=== PATIENT | female | born 1930 | race Caucasian/White ===

== ENCOUNTER → 2017-08-11 | Outpatient (CLI) | payer MEDICARE ==
[~2017-08-11] MED LIST: ACET325; ACET325 PO; ACET500; ACET500 PO; ACIDOPHILUS PO; ALEN70; ALEN70 PO; ALPR.5; ALPR.5 PO; ALPR1 PO; AMLO10 PO; BECL25NI; BECLNI16.8; BECLOMETHASONE; BENAML10/2; BENAML10/2 PO; BENAML10/5 PO; CALCAVITD; CALCAVITD PO; CALCAVITDA PO; CEPH500 PO; CHOL10002 PO; CHON; CIPR750 PO; CLON1 PO; CONEST.625; CONEST.625 PO; CRANBERRY; CRANBERRY TAB; DIPH25 PO; DOC250 PO; DOCU100 PO; DOXY100 PO; ERGO400 PO; FIBER; FISH1000 PO; GLUCHON PO; GLUCOSAMIN; HYDACE7.5L PO; LACT PO; LISI20 PO; MECL25 PO; MEGARED PO; META800; METO10 PO; MSM; MULVITMINE; MULVITMINE PO; NITR100CA PO; NYST100SU MT; OMEP20ER; OMEP20ER PO; ONDA4 PO; ONDA4ODT MM; ONDA8 PO; OXYB5 PO; POLY500 PO; PRED1; PRED1 PO; PRED5 PO; PREN-16 PO; PROACE100 PO; PROM12.5S PR; PROM50S PR; PSYL5.85P PO; RANI150 PO; RIFA600I PO; RXMETA800; SENN187 PO; TRIHYD253A PO; VITAMIN D PO; VITAMIN D-32000 UNI1 PO; WARF5 PO; [UNRECOGNIZED DRUG - OTHER]; [UNRECOGNIZED DRUG - OTHER]; [UNRECOGNIZED DRUG - OTHER] PO; [UNRECOGNIZED DRUG - OTHER] PO
== END | disposition home or self-care (01) ==
LOC: LAB EV 10:00 → LAB SHORT 10:00
DX: N39.0 Urinary tract infection, site not specified (principal)
CPT/HCPCS: 87086

== ENCOUNTER 2018-02-22 14:14 | Day surgery (SDC) | payer MEDICARE ==
[~2018-02-22] VITALS: Ht 152.4 cm; Wt 58.3 kg
[~2018-02-22 14:14] MED LIST changes: +LEVFLO500 PO; +LIOT5 PO; +Metamucil Smooth1 EA PO; +PANT40 PO; -PSYL5.85P PO
[2018-02-22] MEDS ORDERED: HYDCHL25 PO (14:30)
[2018-02-22] MEDS ORDERED: ACET500 PO (14:31)
--- NOTE | 2018-02-22 14:48 | NUR ---
02/22/18 1448 Bijal Wayne V PT RESTING IN BED, SIDE RAILS IN PLACE, CALL LIGHT WITHIN REACH, VSS. PT TEACHING COMPLETED. PT STATES SHE IS COMFORTABLE AND DOES NOT NEED ANYTHING AT THIS TIME.
--- NOTE | 2018-02-22 17:48 | NUR ---
02/22/18 1748 Lucia Kearns LATE ENTRY UPON ARRIVAL TO SDU, PT BP ELEVATED 223/99, SEE VS STRIP FOR ALL VITALS, INTERVENTIONS AND MEDICATIONS. RN REPOSITIONED BP CUFF, CHANGED TO RADIAL CUFF. PT DENIED PAIN/NAUSEA AND TRANSFERED TO CHAIR SMOOTHLY. DR. ERVIN UPDATED ON PT BP. GAVE 1 500MG TAB TYLENOL AT 1608. PT TOLERATED PO NOURISHMENT AND DENIES NAUSEA/PAIN. CONTINUED TO MONITOR PT AND BP. GAVE 5MG OF IV LEBATOLOL AT [address] ERVIN ORDER. BP GAME DOWN QUICKLY TO PRE OP BASELINE. UPDATED DR ERVIN WHO STATED THAT PT WAS OK FOR DC HOME, AND GAVE VO FOR PT TO TAKE LISINIPRIL WHEN SHE GOT HOME, THEN TAKE HER BP 1 HR LATER AND IF SBP GREATER THAN 180 TO CALL HER ON-CALL PCP. RN REPEATED VO BACK. DR ERVIN ASKED RN TO FAX VITALS TO PCP FOR PATIENT. VITALS SIGN SHEET AND PRE OP VITALS SENT TO PCP. DISCUSSED DC INSTRUCTIONS WITH PT AND FRIEND WILLA, ANSWERED QUESTIONS, WROTE DR ERVIN INSTRUCTIONS ON BACK OF DC INSTRUCTIONS. WC PT TO CAR. POOR CONTROLLED IN AFTERNOON. FAX SENT TO PCP.
== END 2018-02-22 17:13 | disposition home or self-care (01) ==
LOC: ORSCSDS 14:14
PROVIDERS: Ophthalmology
PROC: 080NXZZ Alteration of Right Upper Eyelid, External Approach (ICD-10-PCS; principal; 2018-02-22 15:30)
PROC: 080PXZZ Alteration of Left Upper Eyelid, External Approach (ICD-10-PCS; principal; 2018-02-22 15:30)
PROC: 0W020ZZ Alteration of Face, Open Approach (ICD-10-PCS; principal; 2018-02-22 15:30)
DX: H02.831 Dermatochalasis of right upper eyelid (principal); H02.834 Dermatochalasis of left upper eyelid; H02.413 Mechanical ptosis of bilateral eyelids; I10 Essential (primary) hypertension; I25.2 Old myocardial infarction; Z79.899 Other long term (current) drug therapy
CPT/HCPCS: J7120

== ENCOUNTER → 2018-03-18 | Outpatient (CLI) | payer MEDICARE ==
[~2018-03-18] MED LIST changes: +HYDCHL25 PO
== END | disposition home or self-care (01) ==
LOC: LAB SHORT 11:39 → LAB EV 11:39
DX: N39.0 Urinary tract infection, site not specified (principal)
CPT/HCPCS: 87077; 87086; 87186

== ENCOUNTER → 2018-09-25 | Outpatient (CLI) | payer MEDICARE | END | disposition home or self-care (01) | LOC: PLD 11:45 → LAB SHORT 11:45 | DX: D04.62 Carcinoma in situ of skin of left upper limb, including shoulder (principal) | CPT/HCPCS: 88305 ==

== ENCOUNTER → 2019-01-28 | Outpatient (CLI) | payer MEDICARE ==
[~2019-01-28] MED LIST changes: +AZO CRANBERRY1 EAC1 PO; +METAMUCIL POWD575 GM PO; +TUMS500 MG PO; -VITAMIN D-32000 UNI1 PO; +VITAMIN D325 MCG PO; +Zantac150 MG PO
== END | disposition home or self-care (01) ==
LOC: LAB SHORT 10:09 → LAB EV 10:09
DX: N39.0 Urinary tract infection, site not specified (principal)
CPT/HCPCS: 87077; 87086; 87186

== ENCOUNTER 2019-02-08 22:34 | Observation (INO) | payer MEDICARE ==
[~2019-02-08] VITALS: Ht 152.4 cm; Wt 54.9 kg
[~2019-02-08 22:34] MED LIST changes: -AZO CRANBERRY1 EAC1 PO; -METAMUCIL POWD575 GM PO; -TUMS500 MG PO; -Zantac150 MG PO
[2019-02-08] MEDS ORDERED: METAMUCIL POWD575 GM PO (22:48)
[2019-02-08] MEDS ORDERED: Zantac150 MG PO (22:49)
[2019-02-08] MEDS ORDERED: AZO CRANBERRY1 EAC1 PO (22:49)
[2019-02-08] MEDS ORDERED: TUMS500 MG PO (22:50)
[2019-02-08 23:56] LABS: BASOPHILS ABSOLUTE AUTO 0.08 K/mm3 (0.00-0.23); BASOPHILS PERCENT AUTO 0 % (0-2); EOSINOPHILS ABSOLUTE AUTO 0.12 K/mm3 (0.00-0.68); EOSINOPHILS PERCENT AUTO 0 % (0-6); Hematocrit 38.3 % (33.0-51.0); Hemoglobin 12.7 g/dL (11.5-16.0); IMMATURE GRAN ABSOLUTE AUTO 0.22 K/mm3 (0.00-0.10); IMMATURE GRAN PERCENT AUTO 1 % (0-1); LYMPHOCYTES ABSOLUTE AUTO 3.38 K/mm3 (0.84-5.20); LYMPHOCYTES PERCENT AUTO 10 % (21-46); MONOCYTES ABSOLUTE AUTO 2.67 K/mm3 (0.16-1.47); MONOCYTES PERCENT AUTO 8 % (4-13); Mean Corpuscular HGB Conc 33.2 g/dL (31.5-36.5); Mean Corpuscular Volume 90 fL (80-100); Mean Platelet Volume 10.5 fL (9.1-12.4); NEUTROPHILS ABSOLUTE AUTO 27.88 K/mm3 (1.96-9.15); NEUTROPHILS PERCENT AUTO 81 % (41-73); Platelet Count 558 K/mm3 (150-400); RDW Coefficient Variation 13.6 % (11.7-14.2); RDW Standard Deviation 44.6 fL (35.1-46.3); Red Blood Cell Count 4.24 M/mm3 (3.80-5.20); White Blood Cell Count 34.35 K/mm3 (4.00-11.30)
[2019-02-09 00:17] LABS: Alanine Aminotransfer (ALT/SGP 25 U/L (12-78); Albumin, Blood 3.5 g/dL (3.4-5.0); Albumin/Globulin Ratio 0.8 (0.8-1.8); Alk Phos 76 U/L (50-136); Anion Gap 8 mmol/L (6-16); Aspartate Aminotrans (AST/SGOT 16 U/L (12-37); Bilirubin, Total 0.3 mg/dL (0.1-1.0); Blood Urea Nitrogen 18 mg/dL (8-24); Bun/Creatinine Ratio 26.5 (12.0-20.0); CO2, Blood 25 mmol/L (21-32); Calcium, Blood 9.6 mg/dL (8.5-10.1); Chloride, Blood 100 mmol/L (98-108); Creatinine, Blood 0.68 mg/dL (0.40-1.00); Globulin, Blood 4.2 g/dL (2.2-4.0); Glomerular Filtration Rate >60 (60-); Glucose, Blood 103 mg/dL (70-99); Potassium, Blood 4.4 mmol/L (3.5-5.5); Sodium, Blood 133 mmol/L (136-145); Total Protein, Blood 7.7 g/dL (6.4-8.2); Troponin I <0.015 ng/mL (0.000-0.040)
[2019-02-09 00:28] LABS: Source, Urine Catheter
[2019-02-09 00:31] LABS: Bilirubin, Urine Neg (Neg); Blood, Urine Neg (Neg); Glucose Qualitative, Urine Neg (Neg); Ketones, Urine Neg (Neg); Leukocyte Esterase, Urine Neg (Neg); Nitrite, Urine Neg (Neg); Protein, Urine Neg (Neg); Urobilinogen, Urine NORM (Normal)
[2019-02-09 00:37] LABS: Appearance, Urine Clear (Clear); Color, Urine Yellow (P-Yellow)
[2019-02-09 01:45] LABS: Adenovirus F 40/41 Not Detected (NOT DETECT); Astrovirus Not Detected (NOT DETECT); Campylobacter Sp Not Detected (NOT DETECT); Cryptosporidium Not Detected (NOT DETECT); Cyclospora Cayetanensis Not Detected (NOT DETECT); E. Coli O157 Not Detected (NOT DETECT); Entamoeba Histolytica Not Detected (NOT DETECT); Enteroaggregative E. coli-EAEC Not Detected (NOT DETECT); Enteropathogenic E. coli-EPEC Not Detected (NOT DETECT); Enterotoxigenic E. coli-ETEC Not Detected (NOT DETECT); Giardia Lamblia Not Detected (NOT DETECT); Norovirus GI/GII Not Detected (NOT DETECT); Plesiomonas Shigelloides Not Detected (NOT DETECT); Rotavirus A Not Detected (NOT DETECT); Salmonella Sp Not Detected (NOT DETECT); Sapovirus Not Detected (NOT DETECT); Shiga Toxin-prod E. coli-STEC Not Detected (NOT DETECT); Shigella/Enteroin E. coli-EIEC Not Detected (NOT DETECT); Vibrio Cholerae Not Detected (NOT DETECT); Vibrio Sp Not Detected (NOT DETECT); Yersinia Enterocolitica Not Detected (NOT DETECT)
--- NOTE | 2019-02-09 05:44 | NUR ---
END SHIFT SUMMARY ASSUMED CARE OF PT AT 0420. PT IS ALERT AND ORIENTED X4. PT IS A GOOD HISTORIAN. PT STATES THAT SHE GETS LOW BP AND THATS WHY SHE GETS DIZZY AND FAINTS, PT STATED THAT SHE FELT LIKE SHE HAD TO GO TO THE BATHROOM WHEN SHE WAS ABOUT TO TAKE HER MEDS LAST NIGHT, AFTER SHE WENT, WHEN SHE STOOD UP SHE GOT DIZZY AND WHEN SHE TRIED TO THROW UP SHE ACCIDENTLY HAD DIARRHEA, THEN SHE FELT FAINT AND COLLAPSED, PT STATED SHE HIT HER HEAD ON THE TUB BUT IT DIDNT MAKE HER BLACK OUT AND THE PT HAS A SKIN TEAR ON HER R FOREARM, PICTURES TAKEN. MURMUR HEARD ON AUSCALTATION, PT ON TELE, SINUS @ 81. LUNG SOUNDS CLEAR, PT ON RA. PT IS CURRENTLY SLEEPING, CALL LIGHT IN REACH, BED IN LOWEST POSTION, WILL CONTINUE TO MONITOR UNTIL DAYSHIFT NURSE ARRIVES.
[2019-02-09 08:34] LABS: Hematocrit 32.6 % (33.0-51.0); Hemoglobin 10.7 g/dL (11.5-16.0); Mean Corpuscular HGB 29.6 pg (26.0-34.0); Mean Corpuscular HGB Conc 32.8 g/dL (31.5-36.5); Mean Corpuscular Volume 90 fL (80-100); Mean Platelet Volume 10.9 fL (9.1-12.4); Platelet Count 507 K/mm3 (150-400); RDW Coefficient Variation 13.6 % (11.7-14.2); Red Blood Cell Count 3.61 M/mm3 (3.80-5.20); White Blood Cell Count 22.02 K/mm3 (4.00-11.30)
[2019-02-09 09:27] LABS: Anion Gap 6 mmol/L (6-16); Blood Urea Nitrogen 18 mg/dL (8-24); Bun/Creatinine Ratio 27.2 (12.0-20.0); CO2, Blood 24 mmol/L (21-32); Calcium, Blood 8.4 mg/dL (8.5-10.1); Chloride, Blood 102 mmol/L (98-108); Creatinine, Blood 0.66 mg/dL (0.40-1.00); Glomerular Filtration Rate >60 (60-); Glucose, Blood 100 mg/dL (70-99); Phosphorus, Blood 2.7 mg/dL (2.5-4.9); Sodium, Blood 132 mmol/L (136-145)
[2019-02-09 12:01] LABS: Adenovirus Not Detected (NOT DETECT); Coronavirus 229E Not Detected (NOT DETECT); Coronavirus HKU1 Not Detected (NOT DETECT); Coronavirus NL63 Not Detected (NOT DETECT); Coronavirus OC43 Not Detected (NOT DETECT); Human Metapneumovirus Not Detected (NOT DETECT); Human Rhinovirus/Enterovirus Not Detected (NOT DETECT); Influenza A Not Detected (NOT DETECT); Influenza A/2009-H1 Not Detected (NOT DETECT); Influenza A/H1 Not Detected (NOT DETECT); Influenza A/H3 Not Detected (NOT DETECT)
[2019-02-09 12:02] LABS: Bordetella pertussis Not Detected (NOT DETECT); Chlamydophila pneumoniae Not Detected (NOT DETECT); Influenza B Not Detected (NOT DETECT); Mycoplasma pneumoniae Not Detected (NOT DETECT); Parainfluenza Virus 1 Not Detected (NOT DETECT); Parainfluenza Virus 2 Not Detected (NOT DETECT); Parainfluenza Virus 3 Not Detected (NOT DETECT); Parainfluenza Virus 4 Not Detected (NOT DETECT); Respiratory Syncytial Virus Not Detected (NOT DETECT)
--- NOTE | 2019-02-09 18:14 | NUR ---
SHIFT SUMMARY PATIENT A/O. FAMILY/FRIENDS AT BEDSIDE FOR PORTION OF SHIFT. ABLE TO MAKE NEEDS KNOWN. CALL LIGHT IN REACH. PATIENT CALLS FOR ASSISTANCE TO TRANSFER TO RESTROOM. PATIENT RIGHT ARM HAS DRESSING APPLIED AND IS CDI. TELEMETRY IN PLACE. NO ACUTE CHANGES DURING SHIFT. TOLERATING FLUIDS, WBC TREND IS DOWN.
--- NOTE | 2019-02-09 21:13 | NUR ---
BEGINNING SHIFT SUMMARY ASSUMED CARE OF PT AT 1900. PT WAS LYING IN BED WATCHING TV. PT IS A/O, DAUGHTER WAS LEAVING ROOM AT THIS TIME. HEART MURMUR HEARD ON AUSCALTATIONS, TELE SHOED A FIRST DEGREE BLOCK IN SINUS AT 85, TRACE EDEMA IN BLE. EXPIRATORY WHEEZING BILATERALLY. PT IS MINIMAL ASSIST WITH IV POLE, PT DENIES ANY SYNCOPE WHILE WALKING. PT STATES THAT SHE HAS BEEN HAVING MORE GAS SINCE SHE HAS BEEN IN THE HOSPITAL, ABDOMEN SOFT AND NONTENDER. PT IS CURRENTLY SLEEPING, CALL LIGHT IN REACH, BED IN LOWEST POSTION, WILL CONTINUE TO MONITOR.
[2019-02-10 05:08] LABS: BASOPHILS ABSOLUTE AUTO 0.05 K/mm3 (0.00-0.23); BASOPHILS PERCENT AUTO 1 % (0-2); EOSINOPHILS ABSOLUTE AUTO 0.22 K/mm3 (0.00-0.68); EOSINOPHILS PERCENT AUTO 2 % (0-6); Hematocrit 31.9 % (33.0-51.0); Hemoglobin 10.2 g/dL (11.5-16.0); IMMATURE GRAN ABSOLUTE AUTO 0.04 K/mm3 (0.00-0.10); IMMATURE GRAN PERCENT AUTO 0 % (0-1); LYMPHOCYTES ABSOLUTE AUTO 3.87 K/mm3 (0.84-5.20); LYMPHOCYTES PERCENT AUTO 36 % (21-46); MONOCYTES ABSOLUTE AUTO 1.16 K/mm3 (0.16-1.47); MONOCYTES PERCENT AUTO 11 % (4-13); Mean Corpuscular HGB 29.6 pg (26.0-34.0); Mean Platelet Volume 10.6 fL (9.1-12.4); NEUTROPHILS ABSOLUTE AUTO 5.44 K/mm3 (1.96-9.15); NEUTROPHILS PERCENT AUTO 50 % (41-73); Platelet Count 456 K/mm3 (150-400); RDW Coefficient Variation 13.7 % (11.7-14.2); RDW Standard Deviation 45.9 fL (35.1-46.3); Red Blood Cell Count 3.45 M/mm3 (3.80-5.20); White Blood Cell Count 10.78 K/mm3 (4.00-11.30)
[2019-02-10 05:10] LABS: Mean Corpuscular Volume 93 fL (80-100)
[2019-02-10 05:29] LABS: Albumin, Blood 2.7 g/dL (3.4-5.0); Anion Gap 6 mmol/L (6-16); Blood Urea Nitrogen 14 mg/dL (8-24); Bun/Creatinine Ratio 19.7 (12.0-20.0); CO2, Blood 25 mmol/L (21-32); Calcium, Blood 8.3 mg/dL (8.5-10.1); Chloride, Blood 103 mmol/L (98-108); Creatinine, Blood 0.71 mg/dL (0.40-1.00); Glomerular Filtration Rate >60 (60-); Glucose, Blood 86 mg/dL (70-99); Phosphorus, Blood 2.7 mg/dL (2.5-4.9); Sodium, Blood 134 mmol/L (136-145)
--- NOTE | 2019-02-10 06:14 | NUR ---
END SHIFT SUMMARY NO ACUTE CHANGES NOTED T/O THE NIGHT. PT SLEPT T/O THE NIGHT. PT WALKED TO BATHROOM WITH POLE ASSISTANCE. VITAL SIGNS STABLE. CALL LIGHT IN REACH, BED IN LOWEST POSTION, WILL CONTINUE TO MONITOR UNTIL DAYSHIFT NURSE ARRIVES.
--- NOTE | 2019-02-10 11:16 | NUR ---
DISCHARGE SUMMARY LINA IS GOING HOME WITH HER [facility] FOR A RIDE. INDEP IN ROOM. TELE DC'D (HAD BEEN NSR WITH 1ST DEGREE BLOCK). PIV REMOVED. NO NEW MEDS. PAPERWORK GONE OVER, STICKER PUT OUT AT DECK BUILDER FOR F/U TO BE MADE, PT IS AWARE THAT SHE WILL GET A CALL WITH THE F/U APPT TIME AND DATE.
== END 2019-02-10 11:43 | disposition home or self-care (01) ==
LOC: ER 22:34 → MEDS 22:35
PROVIDERS: Emergency Medicine; Internal Medicine; ADMIT Internal Medicine
DX: D72.829 Elevated white blood cell count, unspecified (principal); R00.0 Tachycardia, unspecified; R65.10 Systemic inflammatory response syndrome (SIRS) of non-infectious origin without acute organ dysfunction; I16.0 Hypertensive urgency; M31.6 Other giant cell arteritis; R19.7 Diarrhea, unspecified; I10 Essential (primary) hypertension; R42 Dizziness and giddiness; Z79.52 Long term (current) use of systemic steroids; Z79.1 Long term (current) use of non-steroidal anti-inflammatories (NSAID); Z79.899 Other long term (current) drug therapy; Z90.710 Acquired absence of both cervix and uterus; Z96.651 Presence of right artificial knee joint; Z87.891 Personal history of nicotine dependence; Z90.49 Acquired absence of other specified parts of digestive tract; Z88.0 Allergy status to penicillin; Z88.1 Allergy status to other antibiotic agents; Z88.2 Allergy status to sulfonamides; Z88.5 Allergy status to narcotic agent; Z88.6 Allergy status to analgesic agent; Z88.8 Allergy status to other drugs, medicaments and biological substances
CPT/HCPCS: 0097U; 0099U; 36415; 71046; 80053; 80069; 81003; 83605; 84145; 84484; 85025; 85027; 87040; 93005; 93010; 96361; 96365; 96372; 96375; 97161; 99285-25; A9270; G0378; J1650; J1956; J2405; J7120; J7512; P9612